=== PATIENT | male | born 1985 | race Native Hawaiian/Other Pacific Islander ===

== ENCOUNTER 2018-01-16 10:08 | Outpatient (CLI) | payer OTHER ==
[~2018-01-16 10:08] MED LIST: ZESTRIL40 MG OR
== END 2018-01-16 22:29 | disposition home or self-care (01) ==
LOC: RAD 10:08
DX: I10 Essential (primary) hypertension (principal); R91.8 Other nonspecific abnormal finding of lung field; R06.02 Shortness of breath